=== PATIENT | female | born 1970 | race Caucasian/White ===

== ENCOUNTER 2021-01-04 20:50 | Emergency (ER) | payer SELFPAY ==
[~2021-01-04] VITALS: Ht 160 cm; Wt 68.0 kg
[2021-01-04 20:57] VITALS: BP_SYST 128
--- NOTE | 2021-01-04 21:02 | NUR ---
Patient to ER bed 02 to gown for evaluation. Side rails up.
--- NOTE | 2021-01-04 21:15 | NUR ---
RECEIVED AND IN ROOM, HERE FOR EMOTIONAL AND ANXIETY
[2021-01-04] MEDS ORDERED: LORazepam 2 MG/ML VIAL IM ONE (21:30)
--- NOTE | 2021-01-04 21:30 | NUR ---
DR CASTRO IN TO ASSESS
--- NOTE | 2021-01-04 21:40 | NUR ---
LABS OBTAINED, TEARFUL AND ANXIOUS
[2021-01-04 21:45] LABS: BASOPHILS # (AUTO) 0.1 K/uL (0.0-0.2); BASOPHILS % (AUTO) 0.5 % (0.0-2.0); EOSINOPHILS # (AUTO) 0.2 K/uL (0.0-0.4); EOSINOPHILS % (AUTO) 1.3 % (0.0-4.0); HEMATOCRIT 36.4 % (36-48); HEMOGLOBIN 12.5 g/dL (12.0-16.0); LYMPHOCYTES % (AUTO) 32.4 % (20.5-51.5); MEAN CORPUSCULAR HEMOGLOBIN 30 pg (27-31); MEAN CORPUSCULAR HGB CONC 34 % (32-36); MEAN CORPUSCULAR VOLUME 86 fL (79.0-98.0); MONOCYTES # (AUTO) 0.7 K/uL (0.0-1.0); NEUTROPHILS # (AUTO) 7.3 K/uL (1.8-7.7); NEUTROPHILS % (AUTO) 59.8 % (40.0-70.0); PLATELET COUNT (AUTO) 280 K/uL (130-430); RED BLOOD CELL COUNT(AUTO) 4.24 MIL/uL (4.2-6.2); RED CELL DISTRIBUTION WIDTH 13.2 % (9.0-15.0); WHITE BLOOD COUNT (AUTO) 12.3 K/uL (4.8-10.8)
--- NOTE | 2021-01-04 21:45 | NUR ---
CXR COMPLETED, SR ON MONITOR NO ECTOPY
[2021-01-04 21:58] LABS: CREATININE 0.98 mg/dL (0.55-1.30); POTASSIUM 3.2 mmol/L (3.5-5.1)
--- NOTE | 2021-01-04 22:04 | NUR ---
INTERMITTENT EPISODES OF CRYING AND HYPERVENTILATION
[2021-01-04 22:06] LABS: ALBUMIN 3.9 g/dL (3.4-4.8); TOTAL BILIRUBIN 0.4 mg/dL (0.0-1.0)
--- NOTE | 2021-01-04 22:42 | NUR ---
Calm, resp unlabored, skin warm and dry. No distress. skin warm and dry. SR ON MONITOR
[2021-01-04 22:59] LABS: CKMB RELATIVE INDEX 1.6 (0.0-2.9); CREATINE KINASE MB 3.3 ng/mL (0-3.6)
[2021-01-04] MEDS ORDERED: POTASSIUM CHLORIDE 20 MEQ TAB.PRT.SR PO ONE (23:00)
[2021-01-04] MEDS ORDERED: MAGNESIUM OXIDE 400 MG TABLET PO ONE (23:00)
[2021-01-04] MEDS ORDERED: LORA-259 PO (23:05)
[2021-01-04 23:22] VITALS: BP_SYST 126
--- NOTE | 2021-01-04 23:23 | NUR ---
Patient given written and verbal discharge instructions and verbalizes understanding. ER MD discussed with patient the results and treatment provided. Patient in stable condition. ID arm band removed. IV catheter removed intact and dressing applied, no active bleeding. Patient educated on pain management and to follow up with PMD. Pain Scale 0/10 Opportunity for questions provided and answered.
[2021-01-07] MEDS ORDERED: VAL2 PO ×2 (02:41→02:42)
== END 2021-01-04 23:22 | disposition home or self-care (01) ==
LOC: SED 20:50
DX: F41.9 Anxiety disorder, unspecified (principal); E87.6 Hypokalemia; F12.90 Cannabis use, unspecified, uncomplicated; G47.30 Sleep apnea, unspecified
CPT/HCPCS: 36415; 71045; 80053; 82550; 82553; 83880; 84484; 85025; 93005; 96372; 99285; J2060